=== PATIENT | female | born 1995 | race Caucasian/White ===

== ENCOUNTER 2024-03-14 06:36 | Day surgery (SDC) | payer OTHER ==
[~2024-03-14 06:36] MED LIST: ACETAMINOPHEN 1,000 MG/100 ML 1,000 MG/100 ML BAG IV ONE
[2024-03-14] MEDS: LACTATED RINGERS 1,000 ML IV ONE ×2 (06:54→16:43)
[2024-03-14] MEDS ORDERED: CHLORHEXIDINE GLUCONATE 15 ML UDC PO ONE (07:24)
[2024-03-14] MEDS ORDERED: LIDOCAINE 1%-EPI 1:100000 20 ML MDV ONE (07:24)
[2024-03-14] MEDS ORDERED: MINERAL OIL/PETROLAT OPHTH OINT ONE (07:24)
[2024-03-14] MEDS ORDERED: BACITRACIN ZINC OINT 1 PACKET TOP ONE (07:24)
[2024-03-14] MEDS ORDERED: OXYMETAZOLINE HCL 100 SPRAYS BOTTLE ONE (07:24)
[2024-03-14] MEDS ORDERED: MIDAZOLAM 2 MG/2 ML VIAL ONE (08:04)
[2024-03-14] MEDS ORDERED: fentaNYL 100 MCG/2 ML VIAL ONE (08:04)
[2024-03-14] MEDS ORDERED: PROPOFOL 200 MG/20 ML VIAL IVP ONE (08:04)
[2024-03-14] MEDS ORDERED: ONDANSETRON 4 MG/2 ML VIAL ONE ×2 (08:05→14:12)
[2024-03-14] MEDS ORDERED: TRANEXAMIC ACID 1,000 MG/10 ML VIAL ONE (08:05)
[2024-03-14] MEDS ORDERED: LIDOCAINE-PF 2% 10 ML AMP SUBQ ONE (08:05)
[2024-03-14] MEDS ORDERED: DEXAMETHASONE 10 MG/ML VIAL ONE ×2 (08:05→15:01)
[2024-03-14] MEDS ORDERED: diphenhydrAMINE INJ 50 MG/ML VIAL ONE (08:05)
[2024-03-14] MEDS: OXYMETAZOLINE HCL 100 SPRAYS BOTTLE NAS STA (08:06)
[2024-03-14] MEDS ORDERED: SUGAMMADEX 200 MG/2 ML VIAL IVP ONE (08:06)
[2024-03-14 08:34] LABS: HCG,QUALITATIVE BLOOD NEGATIVE
[2024-03-14] MEDS: OXYMETAZOLINE HCL 100 SPRAYS BOTTLE NAS ONE (09:52)
[2024-03-14] MEDS: MINERAL OIL/PETROLAT OPHTH OINT EACHEYE ONE (09:52)
[2024-03-14] MEDS: LIDOCAINE 1%-EPI 1:100000 20 ML MDV SUBQ ONE (09:52)
[2024-03-14] MEDS: BACITRACIN ZINC OINT 14 GM TOP ONE (09:54)
[2024-03-14] MEDS: CHLORHEXIDINE GLUCONATE 15 ML UDC PO ONE (09:55)
--- NOTE | 2024-03-14 10:26 | ANESTHESIA ---
Pre-Anesthesia VS, & Labs - Diagnosis mandibular hypoplasia - Procedure le forte one facial reconstruction Vital Signs: Temp Pulse Resp BP Pulse Ox O2 Flow Rate 36.1 C L 52 L 14 113/65 100 03/14/24 07:01 03/14/24 07:01 03/14/24 07:01 03/14/24 07:01 03/14/24 07:01 Height: 5 ft 3 in Weight (kg): 72.8 kg Body Mass Index: 28.4 BMI Classification: Overweight - NPO >8 hours - Is Patient ?: No - Lab Results Current Lab Results: Laboratory Tests 03/14/24 08:00: Serum HCG, Qual NEGATIVE 03/14/24 07:25: Blood Type Recheck B POSITIVE 03/14/24 07:15: Blood Type B POSITIVE, Antibody Screen NEGATIVE Home Medications and Allergies Home Medications: Ambulatory Orders No Known Home Medications 03/04/24 No Known Home Medications 03/04/24 Allergies/Adverse Reactions: Allergies Allergy/AdvReac Type Severity Reaction Status Date / Time No Known Drug Allergies Allergy Verified 03/04/24 13:06 Anes History & Medical History - Anesthetic History Anesthesia Complications: reports: No previous complications Family history of Anesthesia Complications: Denies Family history of Malignant Hyperthermia: Denies - Medical History Cardiovascular: reports: None Pulmonary: reports: None Gastrointestinal: reports: None Urinary: reports: None Musculoskeletal: reports: None Endocrine/Autoimmune: reports: None Skin: reports: None Smoking Status: Never smoker Psychosocial: reports: No issues indicated History of Cancer?: No Exam General: Alert, Oriented x3, Cooperative Dental: Other (mandibular hypoplasia, significant micrognathia, braces) Mouth Openin Fingerbreadth Neck Mobility: Normal Mallampati classification: III (meets criteria for difficult airway), IV Thyromental Distance: less than 4 cm Respiratory: Lungs clear Cardiovascular: Regular rate Plan Anesthesia Type: General (nasal intubation) Consent for Procedure(s) Verified and Reviewed: Yes Code Status: Attempt Resuscitation ASA classification: 1-Healthy patient Is this case an emergency?: No
[2024-03-14] MEDS ORDERED: ROCURONIUM 50 MG/5 ML VIAL ONE (10:27)
[2024-03-14] MEDS ORDERED: ATROPINE ABBOJECT 1 MG/10 ML SYRINGE IVP PRN ×2 (10:33→17:02)
[2024-03-14] MEDS ORDERED: ONDANSETRON 4 MG/2 ML VIAL IVP PRN ×3 (10:33→17:02)
[2024-03-14] MEDS ORDERED: ePHEDrine 50 MG/ML VIAL IVP PRN ×2 (10:33→17:02)
[2024-03-14] MEDS ORDERED: NALOXONE 0.4 MG/ML VIAL IVP PRN ×2 (10:33→17:02)
[2024-03-14] MEDS ORDERED: fentaNYL 100 MCG/2 ML VIAL IVP PRN ×2 (10:33→17:02)
[2024-03-14] MEDS ORDERED: MORPHINE 2 MG/ML CARPUJECT IVP PRN ×2 (10:33→17:02)
[2024-03-14] MEDS ORDERED: METOCLOPRAMIDE 10 MG/2 ML VIAL IVP PRN ×2 (10:33→17:02)
[2024-03-14] MEDS ORDERED: HYDROmorphone 1 MG/ML CARPUJECT ONE ×2 (11:34→13:55)
[2024-03-14] MEDS ORDERED: KETOROLAC 30 MG/ML VIAL ONE (14:12)
[2024-03-14] MEDS ORDERED: ACETAMINOPHEN 1,000 MG/100 ML 1,000 MG/100 ML BAG IV ONE (16:30)
[2024-03-14] MEDS ORDERED: HYDROmorphone 0.5 MG/0.5 ML SYRINGE IVP PRN (17:02)
--- NOTE | 2024-03-14 17:20 | OPERATIVE REPORT ---
Operative Report - General Procedure Date: 03/14/24 Planned Procedure: 1. LeFort I osteotomy advancement and impaction. 2. Bilateral sagittal split osteotomy advancement. 3. Genioplasty advancement Pre-Op Diagnosis: mandibular retrognathia Procedure Performed: 1. LeFort I osteotomy advancement and impaction three-piece with fixation 2. Bilateral sagittal split osteotomy advancement with fixation 3. Surgical stent use Note that no genioplasty was performed. Post Op Diagnosis: Mandibular retrognathia - Procedure Note Primary Surgeon: Henry Waddell DDS Anesthesia Provider: Franci Singh CRNA Anesthesia Technique: General ET tube ( nasal R AE tube. 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 It was decided that a 3 piece LeFort osteotomy advancement and impaction with a bilateral sagittal split osteotomy advancement was indicated. The risks, benefits, and alternatives of this plan were discussed with the patient including pain, swelling, bleeding, infection, need for further surgeries, malunion, nonunion, malocclusion, damage to teeth, loss of teeth, poor cosmesis, scarring, permanent nerve damage with permanent paralysis of the muscles of the face and/or permanent loss of sensation and/or paresthesia of the tongue lips and chin. Adequate time was given to answer all questions and informed consent was obtaine d. Findings: The patient was brought to the main operating room and placed in supine position on the operating table. General anesthesia was induced by the anesthesia team and the airway was secured with a nasal ray tube via the left naris. The tube was secured to the nose in the usual fashion. The arms were tucked. All pressure points were padded. The patient was prepped and draped in the standard sterile fashion for an orthognathic surgery. A formal timeout was executed Local anesthesia was achieved with 2% lidocaine with 1 100,000 epinephrine x 10 cc. A throat pack was placed Attention was directed to the nasofrontal suture. A 0.062 gauge K wire was placed. This was used as a hard tissue landmark for a reference for the impaction. The measurement from the wire to the incisal edge of tooth #8 was 86 mm. The the LeFort surgery was performed first. An incision from first molar to first molar was made down to bone. Subperiosteal dissection was performed exposing the maxilla up to the nasal rim. Dissection posteriorly to the pterygoid plates was performed. We the plane of dissection was subperiosteal. The nasal mucosa was delicately elevated and stayed very intact. The right side osteotomy was performed first with a reciprocating saw. The osteotomy began in the pterygoid plate region and coursed up to the piriform rim and into the nose. A freer elevator was used to protect the nasal mucosa. Copious irrigation was used throughout the osteotomy. The same osteotomy was repeated on the left-hand side. The pterygoid osteotomes were then used to separate the pterygoid plates from the maxilla. The pterygoid osteotome was angled in an inferior and medial direction. A finger was placed on the soft tissue opposing the osteotomy to make sure that the mucosa was not violated. A 2 ball osteotome was then used to separate the nasal septum from the maxillary septal process. 1 ball osteotome was then used to perform the osteotomy at the lateral Nasal wall. The maxilla was down fractured easily. Some venous bleeding was encountered but no arterial bleeding. Bony interferences were removed. The area was irrigated. An anteri or posterior osteotomy was performed with a reciprocating saw on the right paramidline maxilla. Osteotomies were then made through the canine lateral intra radicular bone with an oscillating saw. The osteotomies were all connected. A spatula osteotome was used to complete the osteotomy. The maxilla was divided into 3 segments. At the posterior aspect the maxilla was delicately from the soft tissue within #1 in order to allow for the posterior to spread 5 mm. The intermediate surgical splint was fixated to the maxilla. The mandible was fixated to the maxilla with 24-gauge wire. The condyles were seated and the maxilla was tapped into place. While the maxilla was tapped into place the bony interferences were encountered. There were the most severe around the descending Palatino artery. In this area rondure was carefully used to tease away the bone from the artery and to leave the artery intact. This was performed instead of the artery and clipping it. The reason for this was the small segment in the premaxilla and the worry about necrosing the segment. Bony interferences were removed and the maxilla was impacted 2 mm. It was then fixated into this position using 2T shaped plates at the piriform rim area with the medial aspect of these plates wrapping anteriorly onto the premaxillary segment. 2L plates were then used in the zygomatic buttress region. The site was irrigated. Attention was directed to the mandible. Attention was directed to the mandibular right. An incision was made along the anterior border of the mandible and coursing down onto the lateral aspect of the mandible up to the second molar. Subperiosteal dissection was performed. Attention was then directed to the lingual ascending ramus above the lingula. Subperiosteal dissection was performed and the neurovascular bundle was identified. The lingula was identified. The neurovascular bundle was protected with a Langley elevator. The osteotomy was started in this area with a reciprocating saw angled downward instead of laterally. The downward osteotomy coursed down into the lateral mandible just following the standard BSS O osteotomy. The osteotomy was then performed at the inferior border the mandible and the second molar region. The inferior border the mandible was cut completely through until it was easy to see light reflecting off of the channel retractor. The 2 osteotomies were joint. The splint was not completed at this point. Attention was directed to the mandibular left. The BSS O incision and osteotomy were performed in identical fashion. attention was directed back to the mandibular right. The osteotomy was completed by propagating the osteotomy with assistance combination of spreaders and osteotomes and mallet. The splint was successful. There was no bad split. The nerve stayed mostly present in the distal segment. A tiny portion of it was still present in the proximal segment. It was easily from the proximal segment. Sharp bony protuberances around the nerve canal and elsewhere within the that segment were removed with a football bur taking care to protect the neurovascular bundle. The neurovascular bundle remained intact throughout the osteotomy and throughout the removal of interferences process. Attention was then directed to the mandibular left. The osteotomy was propagated with a series of spreaders and osteotomes and mallet. This plate was successful. There is no bad splint. On this side the neurovascular bundle stayed mostly attached to the proximal segment. It had to be teased away from the proximal segment with careful removal of bone around the nerve. The nerve stayed intact. A Randall was used to perfect protect the neurovascular bundle while bony interferences were removed on the side. The mandible was then placed into its advanced position. This was done using a J. Langley to strip the periosteum off the inferior border of the mandible to allow for a 10 mm advancement. Attention was directed to the right mandible. A trocar incision was made. A trocar set up was used to place 3 positional screws. Prior to the placement of the screws and knots was placed in the proximal segment with a 703 bur. The segment was seated posteriorly making sure the condyle was seated completely in the fossa. A modified Allis clamp was used to hold the segment in position. 3 positional screws and an inverted L were placed. The Allis clamp was removed. There was still some mobility of the proximal segment. Because of this we decided place a 4-hole plate with a gap. This was placed with monocortical screws. The site was irrigated. The segment was now stable. Attention was directed to the left. A 703 bur was used to notch the proximal segment. The condylar head was seated. An Allis clamp was used to retain the proximal segment and its relationship to the distal segment. 3 positional screws in an inverted L pattern were placed. This segment was stable. No plate was necessary. The site was irrigated. Intermaxillary fixation was released. Occlusion was stable and replete repeatable but with a slight backslide to the right about a millimeter. This backslide was relevant but not severe enough to justify taking down the fixation especially after the problem with the relatively soft bone of the right mandible that necessitated placing 3 positional screws as well as a fixation plate. The plan at this point was to use guiding elastics to correct her malocclusion in this position. At this point it was time to close all the surgical incisions. Attention was directed to the maxilla. A drill was used to make a hole through the anterior nasal spine. The tip of the anterior nasal spine was removed with a rongeur. About 3 mm. A suture was placed through the anterior nasal spine and then up through the septum, a septal stay suture. This was a 4-0 Vicryl suture. A single skin hook was then used to retract the mucosa of the upper lip superiorly to place 3 sutures in this area to increase vermilion display. A 4-0 Vicryl suture was then used to grasp the left and right naris and to secure them to each other in a fashion that would narrow the naris and prevent the postoperative widening of the naris. The maxillary incision was then closed with 4-0 Vicryl suture. Attention was directed to the mandible. The right BSs O incision was closed with 4-0 Vicryl suture. The left. The left BSS O incision was closed with 4-0 Vicryl suture. All sites were hemostatic. The throat pack was removed. The throat was suctioned. Occlusion into the splint was stable and repeatable but with the small slide to the right. In other words the occlusion was contacting on the right first suggesting that this condyle was not completely seated at the time of fixation. Likely this was a result of the soft fixation of the right mandible. 5-0 Prolene suture was used to close the bilateral trocar incisions. This marked the end of the case. The patient was placed into guiding elastics. The throat was suctioned prior to this. Care the patient was returned to the anesthesia team. She was extubated uneventfully and emerged uneventfully from anesthesia. The face was cleansed. The patient was escorted to the PACU in stable condition.
--- NOTE | 2024-03-14 17:24 | ANESTHESIA POST OP EVALUATION ---
Anesthesia Post Eval - Post Anesthesia Eval Vitals: Last Vital Signs Temp 37 C 03/14/24 16:43 Pulse 87 03/14/24 17:15 Resp 15 03/14/24 17:15 BP 129/85 H 03/14/24 17:15 Pulse Ox 96 03/14/24 17:15 O2 Flow Rate CV Function Including HR & BP: Stable Pain Control: Additional Therapies Ordered Nausea & Vomiting: Negative Mental Status: Baseline Respiratory Status: Airway Patent Hydration Status: Satisfactory Anesthesia Complications: None
[2024-03-14] MEDS ORDERED: HYDROmorphone 0.5 MG/0.5 ML SYRINGE ONE (17:27)
[2024-03-14] MEDS: HYDROmorphone 0.5 MG/0.5 ML SYRINGE IVP PRN (17:30)
[2024-03-14] MEDS: AMPICILLIN/SULBACTAM 3 GM in SODIUM CHLORIDE 0.9% MINIBAG 100 ML IV SCH (18:11)
[2024-03-14] MEDS: IBUPROFEN 200 MG/10 ML UDC PO SCH (18:11)
[2024-03-14] MEDS: MORPHINE 2 MG/ML CARPUJECT IVP PRN (18:14)
[2024-03-14] MEDS: LACTATED RINGERS 1,000 ML IV SCH ×2 (18:46)
[2024-03-14] MEDS: CHLORHEXIDINE GLUCONATE 15 ML UDC PO SCH (21:10)
[2024-03-14] MEDS: HYDROmorphone 0.5 MG/0.5 ML SYRINGE IVP ONE (21:35)
[2024-03-15] MEDS ORDERED: IBUPROFEN 200 MG/10 ML UDC ONE (03:14)
[2024-03-15] MEDS ORDERED: oxyCODONE 5 MG TABLET PO PRN (07:18)
[2024-03-15] MEDS: HYDROmorphone 0.5 MG/0.5 ML SYRINGE IVP PRN (08:52)
--- NOTE | 2024-03-15 11:45 | PROVIDER PROGRESS NOTE ---
Subjective - General Procedure Date: 03/14/24 Post Op Days: 1 Procedure Performed: Lefort I osteotomy, bilateral sagittal split osteotomy - Review of Systems Wound/Incisions: positive: Other General: positive: Appetite, Other (No PO intake overnight. Good PO intake started this am.). negative: Fever, Weakness, Malaise, Night sweats HEENT: positive: Other (No vision changes. No hearing changes.) Cardiovascular: positive: No symptoms Genitourinary: positive: Other (Urinating without difficutly) Musculoskeletal: positive: Other (ambulating without difficulty) Objective - Patient Data Vital Signs: Vital Signs x48h Temp Pulse Resp BP Pulse Ox 03/15/24 08:24 37.0 C 102 H 20 132/76 H 98 03/15/24 04:20 36.5 C 61 16 122/74 97 Weight: Weight 03/13/24 03/14/24 03/15/24 23:59 23:59 23:59 Weight (kg) 72.8 kg Intake & Output: Intake and Output Totals x24h 03/13/24 03/14/24 03/15/24 23:59 23:59 23:59 Intake Total 300 1057 Output Total 1300 Balance -1000 1057 - Current Medications Current Medications: Current Medications Generic Name Dose Route Start Last Admin Trade Name Freq PRN Reason Stop Dose Admin Chlorhexidine Gluconate 15 ml 03/14/24 21:00 03/15/24 08:52 Chlorhexidine Gluconate 15 Ml Udc PO 15 ml BID VINH Administration Hydromorphone HCl 0.5 mg 03/15/24 08:03 03/15/24 08:52 Hydromorphone 0.5 Mg/0.5 Ml Syringe IVP 0.5 mg Q4H PRN Administration Severe Pain (Level 7-10) Ampicillin Sodium/Sulbactam 100 mls @ 200 mls/hr 03/14/24 18:00 03/15/24 11:00 Sodium 3 gm/ Sodium Chloride IV 200 mls/hr Q6HR VINH Administration Ibuprofen 600 mg 03/14/24 17:00 03/15/24 10:55 Ibuprofen 200 Mg/10 Ml Udc PO 600 mg Q6H VINH Administration Morphine Sulfate 2 mg 03/14/24 16:55 03/15/24 04:20 Morphine 2 Mg/Ml Carpuject IVP 2 mg Q2HR PRN Administration Pain 8 to 10 - Physical Exam Wound/Incisions: positive: Other (Incisions c,d,i Sutures intact Moderate postop edema) ENT: positive: Other (Incisions closed and clean. Sutures intact. IMF bands intact. Maxillary splint intact. Capillary refill of anterior maxilla: good. No dusky appearance. Good perfusion) Neurologic/Psychiatric: positive: Other (Complete anesthesia of the bilateral V3 distribution) Impression/Plan - Problem List Problem List: POD #1 s/p 1. Lefort I osteotomy with impaction and small advancement, 3-piece with posterior widening 2. BSSO advancement Genioplasty not performed because of her intraoperative appearance after the BSSO Healing very well Taking good PO afebrile overnight Plan: D/c to home. - emphasized the importance of high calorie, high protein diet - she will go home with her mother - encouraged ambulation - all antibiotics and pain medications have been prescribed and filled prior to admission to the hospital Please call with any questions, Henry Waddell DDS [phone]
[2024-03-15 12:40] VITALS: BP 112/70; O2SAT 99
== END 2024-03-15 13:12 | disposition home or self-care (01) ==
LOC: SDS 06:36 → MS2 15:26 → SDS 03-15 13:12
PROVIDERS: ATTEND Dentist Oral and Maxillofacial Surgery
DX: M26.04 Mandibular hypoplasia (principal); M26.19 Other specified anomalies of jaw-cranial base relationship
CPT/HCPCS: 21143; 21196; 84703; 86850; 86900; 86901; A9270; J0131; J1170; J1200; J7120